=== PATIENT | female | born 1940 | race Caucasian/White ===

== ENCOUNTER → 2016-09-12 | Outpatient (CLI) | payer OTHER | LOC: FIMAGING 14:18 | PROVIDERS: ATTEND Internal Medicine | DX: Z12.31 Encounter for screening mammogram for malignant neoplasm of breast (principal); Z13.820 Encounter for screening for osteoporosis; M85.80 Other specified disorders of bone density and structure, unspecified site; Z80.3 Family history of malignant neoplasm of breast | CPT/HCPCS: G0202 ==

== ENCOUNTER → 2016-09-18 | Outpatient (CLI) | payer OTHER ==
[~2016-09-18] MED LIST: GADOBUTROL 10 ML VIAL IVP ONE
== END ==
LOC: FIMAGING 07:40
PROVIDERS: ATTEND Physical Medicine & Rehabilitation
DX: M50.321 Other cervical disc degeneration at C4-C5 level (principal); M50.322 Other cervical disc degeneration at C5-C6 level; M50.323 Other cervical disc degeneration at C6-C7 level; M50.33 Other cervical disc degeneration, cervicothoracic region; M12.88 Other specific arthropathies, not elsewhere classified, other specified site; M99.71 Connective tissue and disc stenosis of intervertebral foramina of cervical region; M48.02 Spinal stenosis, cervical region
CPT/HCPCS: 72156; A9585

== ENCOUNTER 2016-12-04 10:15 | Emergency (ER) | payer OTHER ==
[2016-12-04 10:39] VITALS: RESP 16
--- NOTE | 2016-12-04 12:39 | EDPHY ---
H & P Time Seen by Provider: 12/04/16 12:24 HPI/ROS: CHIEF COMPLAINT: Finger laceration HISTORY OF PRESENT ILLNESS: This 76-year-old female presenting to the emergency department status post cutting her finger on a mandoline blade few hours ago. Patient states she placed pressure on right away just wanted make sure she did not need sutures. Tetanus vaccine up-to-date March 2016. Denies any other complaints REVIEW OF SYSTEMS: Constitutional: No fever, no chills. Eyes: No discharge. No blurred vision Cardiovascular: No hest pain, no palpitations. Respiratory: no shortness of breath. Gastrointestinal: No abdominal pain, no vomiting. Musculoskeletal: No back pain. Right ring finger laceration Skin: No rashes. Neurological: No headache. Physical Exam: General Appearance: Alert, no distress. Eyes: Pupils equal and round no pallor ENT, Mouth: Mucous membranes moist. Respiratory: There are no retractions. Nonlabored respiratory effort Cardiovascular: Regular rate and rhythm. Neurological: No focal deficits Skin: Warm and dry, no rashes. Musculoskeletal: Neck is supple nontender. Extremities: Superficial Laceration noted to right distal ring finger. full range of motion. Positive CMS intact Psychiatric: Patient is oriented X 3. Acting appropriate Constitutional: Initial Vital Signs Temperature (C) 36.5 C 12/04/16 10:36 Heart Rate 65 12/04/16 10:36 Respiratory Rate 16 12/04/16 10:36 Blood Pressure 139/62 H 12/04/16 10:36 O2 Sat (%) 95 12/04/16 10:36 O2 Delivery Mode Room Air Allergies/Adverse Reactions: No Known Allergies Allergy (Unverified 12/04/16 10:36) Home Medications: Medication Instructions Recorded Aspirin 12/04/16 Atorvastatin Calcium 12/04/16 Hydrochlorothiazide 12/04/16 Tinanidine 12/04/16 Medical Decision Making Procedures: Procedure: Laceration repair with skin glue. The 0.5cm superficial laceration on the right distal ring finger medial aspect of nail, does not involve nail . The wound was cleaned and explored to its base with a gloved finger. There were no deep structures involved. The wound was repaired with tissue adhesive. The procedure was performed by myself. ED Course/Re-evaluation: Discussed the plan of care: Wound irrigation, Dermabond used for closure 1315: discharge home---> stable, discussed discharge instructions and wound care Differential Diagnosis: Other differential diagnosis considered but not limited to tendon laceration, subungual hematoma, and nail avulsion Departure - Departure Disposition: Home, Routine, Self-Care Clinical Impression: Laceration Condition: Good Instructions: Laceration (ED), Skin Adhesive Care (ED) Additional Instructions: 1. Keep initial dressing on for 24 hours 2. After that daily dressing changes. Monitor for any signs of infection, such as: Redness swelling red streaks drainage if this should occur return to the ER Referrals: Catherine Steen MD [Primary Care Provider] - As per Instructions
[2016-12-04] MEDS ORDERED: SKIN ADHESIVE (DERMABOND) 1 EACH TP ONE (12:43)
[2016-12-04 13:33] VITALS: BP 132/74; PULSE 69; TEMP 97.9; O2SAT 96
== END 2016-12-04 13:29 | disposition home or self-care (01) ==
PROC: 0HQFXZZ Repair Right Hand Skin, External Approach (ICD-10-PCS; principal; 2016-12-04)
DX: S61.214A Laceration without foreign body of right ring finger without damage to nail, initial encounter (principal); Z79.82 Long term (current) use of aspirin; W45.8XXA Other foreign body or object entering through skin, initial encounter

== ENCOUNTER → 2017-04-10 | Outpatient (CLI) | payer OTHER | LOC: FIMAGING 13:44 | PROVIDERS: ATTEND Physician Assistant | DX: M48.061 Spinal stenosis, lumbar region without neurogenic claudication (principal); M48.07 Spinal stenosis, lumbosacral region; M54.14 Radiculopathy, thoracic region; M54.16 Radiculopathy, lumbar region; M54.17 Radiculopathy, lumbosacral region | CPT/HCPCS: 72158; A9585 ==

== ENCOUNTER 2017-05-11 12:52 | Observation (INO) | payer OTHER ==
--- NOTE | 2017-05-11 13:06 | EDPHY ---
H & P Time Seen by Provider: 05/11/17 12:52 HPI/ROS: CHIEF COMPLAINT: Bilateral ankle pain and buttock pain post mechanical fall HISTORY OF PRESENT ILLNESS: 76-year-old female, no anticoagulant use, arrives via ambulance, not a trauma activation, after she was in her house, stepped down 2 steps but mis-stepped at the last stair, twisted both ankles and landed on her buttock. She is complaining of bilateral ankle pain right greater than left, no proximal tibia or fibula or knee pain. She is also complaining of buttock and low back pain. History of spinal stenosis with injection yesterday. This purely mechanical non syncopal episode. She denies: Head injury, syncope, midline C-spine pain or injury, peripheral paresthesia, weakness, numbness, chest pain or injury, abdominal pain or injury , straddle injury. PRIMARY CARE PROVIDER: Dr. Catherine Steen REVIEW OF SYSTEMS: A ten point review of systems was performed and is negative with the exception of the items mentioned in the HPI PAST MEDICAL/SURGICAL HISTORY: Spinal stenosis SOCIAL HISTORY: Lives with her partner. denies alcohol use at time of incident PHYSICAL EXAM 1) GENERAL: Well-developed, well-nourished, alert and oriented. Appears anxious. Answering questions appropriately. 2) HEAD: Normocephalic, atraumatic 3) HEENT: Pupils equal, round, reactive to light bilaterally. Negative Horners. Nasopharynx, oropharynx, clear. No deformity or angulation of nose. No septal hematoma. No rhinorrhea. No oral trauma. Ears bilaterally with normal tympanic membranes. No hemotympanum. No fluid or blood in the external auditory canal. No raccoon eyes. No Castaneda sign. Teeth are normally aligned with no gross malocclusion, TMJ bilaterally nontender, facial bones nontender including the zygomatic arch, maxilla mandible. 4) NECK: No cervical collar is on. Posterior cervical spine is nontender, no stepoff, no effusion. Full range of motion which does not elicit any midline cervical spine pain, no posterior midline tenderness, no step-off. 5) LUNGS: Clear to auscultation bilaterally, no wheezes, no rhonchi, no retractions. No obvious signs of trauma. No chest wall pain. No flaring, no grunting. Moving symmetrically. No crepitus. 6) HEART: Regular rate and rhythm, 7) ABDOMEN: No guarding, no rebound, no focal tenderness, no peritoneal signs, no signs of trauma, no ecchymosis 8) MUSCULOSKELETAL: Right lower extremity: Tender to palpation right lateral malleolus with soft tissue swelling noted. Foot including 5th metatarsal nontender. Tibia and fibula including fibular head nontender. Knee nontender. Right hip, acetabulum nontender. Soft compartments Left lower extremity: Tender to palpation lateral malleolus with soft tissue swelling noted. Foot including 5th metatarsal nontender. Tibia and fibula including fibular head nontender. Knee nontender. Left hip, acetabulum nontender. Soft compartments Otherwise,Moving all extremities, no focal areas of tenderness, no obvious trauma. 9) BACK: mild tenderness palpation right buttock. Unable to fully differentiate true midline versus just lateral of midline lower lumbar pain. no visual or palpable abnormality. 10) SKIN: [ No laceration. No abrasion DIFFERENTIAL DIAGNOSIS: In no particular order including but not limited to fracture, sprain, compartment syndrome. - Medical/Surgical History Hx Asthma: No Hx Chronic Respiratory Disease: No Hx Diabetes: Yes Hx Cardiac Disease: No Hx Renal Disease: No Hx Cirrhosis: No Hx Alcoholism: No Hx HIV/AIDS: No Hx Splenectomy or Spleen Trauma: No Other PMH: pmh:dm, spinal stenosis, htn, gerd,. psh:trigge thumb, lami, dental , tonselecomy Constitutional: Initial Vital Signs Temperature (C) 36.9 C 05/11/17 13:14 Heart Rate 83 05/11/17 13:14 Respiratory Rate 17 05/11/17 13:14 Blood Pressure 167/80 H 05/11/17 13:14 O2 Sat (%) 95 05/11/17 13:14 O2 Delivery Mode Room Air Allergies/Adverse Reactions: No Known Allergies Allergy (Unverified 12/04/16 10:36) Home Medications: Medication Instructions Recorded Aspirin [Aspirin 81mg (*)] 81 mg PO DAILY 12/04/16 Atorvastatin Calcium [Lipitor 20 20 mg PO DAILY 12/04/16 mg (*)] Hydrochlorothiazide [HCTZ (*)] 25 mg PO DAILY 12/04/16 Duloxetine HCl [Cymbalta] 40 mg PO DAILY 05/11/17 Fluticasone Nasal [Flonase Nasal 1 sprays NASAL DAILY PRN 05/11/17 Bruce (RX)] Omeprazole [Prilosec 20 mg] 20 mg PO DAILY 05/11/17 Propylene Glycol/Peg 400 [Systane 1 drop EACHEYE DAILY PRN 05/11/17 0.3-0.4% Eye Drops] amLODIPine BESYLATE [Norvasc 5 mg 5 mg PO DAILY 05/11/17 (*)] metFORMIN HCL [Glucophage 500 mg 500 mg PO BIDMEAL 05/11/17 (*)] Medical Decision Making - Diagnostics Imaging Results: Imaging Impressions Ankle X-Ray 05/11/17 13:07 Impression: 1. Nondisplaced oblique fracture distal shaft right fibula with adjacent soft tissue swelling. Ankle X-Ray 05/11/17 13:07 Impression: 1. Lateral ankle sprain on the left. 2. No evidence of fracture left lower leg or ankle. Lumbar Spine X-Ray 05/11/17 13:07 Impression: 1. Degenerative disk disease involving the lumbar spine with mild levoscoliosis as detailed above. 2. No acute osseous abnormality appreciated. Pelvis X-Ray 05/11/17 13:07 Impression: 1. No acute osseous abnormality seen about the pelvis. Tibia/Fibula X-Ray 05/11/17 13:07 Impression: 1. Nondisplaced oblique fracture distal shaft right fibula with adjacent soft tissue swelling. Tibia/Fibula X-Ray 05/11/17 13:07 Impression: 1. Lateral ankle sprain on the left. 2. No evidence of fracture left lower leg or ankle. Images reviewed myself Procedures: Procedure: Splint A [place] boot splint was applied by ER electronics maintenance technician. After application of the splint I returned and re-examined the patient. The splint was adequately immobilizing the joint and distal to the splint the patient's circulation and sensation were intact. Patient shows no signs of compartment syndrome. ED Course/Re-evaluation: 1:08 p.m.:Care of patient under supervision of secondary supervising physician Dr Silva who independently evaluated patient. 2:50 p.m.: Re-evaluation, patient was fitted for a right lower extremity [place] boot I discussed her imaging studies. Positive for distal fibula fracture, closed. Patient has significant pain, is unable to bear weight, is unable to transfer out of the better sit up. Addition she notes that her partner is leaving out of state for a few days. The patient cannot be safely discharged home. Plan will be admission the hospital for PT, OT, rehabilitation , pain control. 2:52 p.m. phone consultation with Dr. Chapis Chapa will consult hospitalist service. Also consulted with hospitalist Dr. De La Rosa who will admit patient - Data Points Medications Given: Hydromorphone HCl (Dilaudid) 0.5 mg IVP Q4HRS PRN PRN Reason: Pain, Severe Unable to Take PO Stop: 05/21/17 15:20 Last Admin: 05/11/17 15:24 Dose: 0.5 mg Discontinued Medications Hydromorphone HCl (Dilaudid) 0.5 mg IVP EDNOW ONE Stop: 05/11/17 13:23 Last Admin: 05/11/17 13:29 Dose: 0.5 mg Ondansetron HCl (Zofran) 4 mg IVP EDNOW ONE Stop: 05/11/17 13:30 Last Admin: 05/11/17 13:33 Dose: 4 mg Departure - Departure Disposition: [facility] Acute Clinical Impression: Fibula fracture Qualifiers: Encounter type: initial encounter Fibula location: distal Fracture type: closed Fracture morphology: other fracture Laterality: right Qualified Code(s): S82.831A - Other fracture of upper and lower end of right fibula, initial encounter for closed fracture Left ankle sprain Qualifiers: Encounter type: initial encounter Involved ligament of ankle: unspecified ligament Qualified Code(s): S93.402A - Sprain of unspecified ligament of left ankle, initial encounter Condition: Fair
[2017-05-11 13:12] LABS: % IMMATURE GRANULYOCYTES 0.5 % (0.0-1.1); ABSOLUTE IMMATURE GRANULOCYTES 0.08 10^3/uL (0.00-0.10); ADD DIFF? NO; ADD MORPH? NO; ADD SCAN? NO; ATYPICAL LYMPHOCYTE FLAG 0 (0-99); FRAGMENT RBC FLAG 0 (0-99); HEMATOCRIT 42.2 % (38.0-47.0); HEMOGLOBIN 14.6 g/dL (12.6-16.3); LEFT SHIFT FLG 0 (0-99); LIPEMIA HEMOLYSIS FLAG 90 (0-99); MEAN CELL HEMOGLOBIN 30.4 pg (27.9-34.1); MEAN CELL HEMOGLOBIN CONCENTR. 34.6 g/dL (32.4-36.7); MEAN CELL VOLUME 87.9 fL (81.5-99.8); MEAN PLATELET VOLUME 10.2 fL (8.7-11.7); PLATELET CLUMPS FLAG 40 (0-99); PLATELET COUNT 357 10^3/uL (150-400)
[2017-05-11] MEDS ORDERED: HYDROmorphONE/DILAUDID 1 MG/ML INJ IVP ONE (13:22)
[2017-05-11] MEDS ORDERED: ONDANSETRON 4 MG/2 ML VIAL ONE (13:24)
[2017-05-11 13:26] LABS: ANION GAP 17 mEq/L (8-16); CARBON DIOXIDE 20 mEq/l (22-31); CHLORIDE 107 mEq/L (97-110); CREATININE 0.9 mg/dL (0.6-1.0); GLOMERULAR FILTRATION RATE > 60; GLUCOSE 165 mg/dL (70-100); POTASSIUM 4.2 mEq/L (3.5-5.2); SODIUM 144 mEq/L (134-144)
[2017-05-11 13:27] LABS: APTT 24.1 SEC (23.0-38.0); INR 0.99 (0.83-1.16)
[2017-05-11] MEDS ORDERED: ONDANSETRON 4 MG/2 ML VIAL IVP ONE (13:29)
[2017-05-11] MEDS ORDERED: HYDROmorphONE/DILAUDID 1 MG/ML INJ IVP PRN (15:21)
[2017-05-11] MEDS ORDERED: HYDROmorphONE/DILAUDID 1 MG/ML INJ ONE (15:23)
[2017-05-11] MEDS ORDERED: ONDANSETRON DISINTEGRATING 4 MG TAB PO PRN (15:40)
[2017-05-11] MEDS ORDERED: ONDANSETRON 4 MG/2 ML VIAL IVP PRN (15:40)
[2017-05-11] MEDS ORDERED: oxyCODONE IR 5 MG TAB PO PRN (15:40)
[2017-05-11] MEDS ORDERED: Propylene Glycol/Peg 400 [Systane 0.3-0.4% Eye Drops] 1 DROP EACHEYE PRN (15:41)
[2017-05-11] MEDS ORDERED: FLUTICASONE NASAL 120 SPRAYS/16 GM MDI NS PRN (15:41)
[2017-05-11] MEDS ORDERED: ACETAMINOPHEN 325 MG TAB PO SCH (15:45)
[2017-05-11] MEDS ORDERED: PANTOPRAZOLE SODIUM 40 MG TAB PO ONE ×2 (16:14→16:16)
--- NOTE | 2017-05-11 16:27 | GHP ---
[f rep st] HISTORY AND PHYSICAL DATE OF ADMISSION: 05/11/2017 HISTORY OF PRESENT ILLNESS: The patient is a 76-year-old female history of hypertension, hyperlipidemia, and early diabetes, who had a mechanical fall today. She has a questionable step between her kitchen and another room only about 6 inches wide. She was carrying a bunch of newspapers. She missed a step. She fell and landed on her bottom. She twisted her ankle, had bilateral ankle pain. She summoned 911. She was diagnosed with a right fibular fracture. She denies antecedent chest pain, palpitations, loss of consciousness , dizziness. She did not hit her head. She does not take anticoagulants. She has not had fever, chills, nausea, vomiting, diarrhea. REVIEW OF SYSTEMS: Complete 10-point review of systems conducted negative except as noted in the HPI. PAST MEDICAL HISTORY: 1. Hypertension. 2. Prediabetes, on metformin. 3. Hyperlipidemia. 4. Spinal stenosis with steroid injection to her right hip yesterday. 5. GERD. ALLERGIES: No known drug allergies. MEDICATIONS: Aspirin, amlodipine, atorvastatin, duloxetine, Flonase, hydrochlorothiazide, metformin, omeprazole, ondansetron, propylene glycol eyedrops. SOCIAL HISTORY: No tobacco. No alcohol. Originally from [place]. Enjoys rock climbing. Lives with a partner. FAMILY HISTORY: Daughter recently diagnosed with oropharyngeal cancer, had surgery. PHYSICAL EXAMINATION: VITAL SIGNS: Blood pressure 167/80, now 151/61, pulse 83 , breathing 17 times a minute, 95% on room air. GENERAL: No acute distress. HEENT: Sclerae anicteric. Oropharynx clear. Mucous membranes moist. NECK: Supple without lymphadenopathy or JVD. LUNGS: Clear to auscultation bilaterally. HEART: S1, S2. ABDOMEN: Soft, nontender, nondistended. LOWER EXTREMITIES: Her right lower extremity is in a boot. Her toes are neurovascularly intact. LABORATORY DATA: Sodium 144, potassium 4.2, chloride 107, bicarb 20, BUN 24, creatinine 0.9, glucose 165. Coags normal. White count 15, hematocrit 42, platelets 357,000. Ankle film shows a right fibular nondisplaced fracture. Left ankle films are negative. I reviewed and interpreted them myself. Pelvis film is negative for fracture. I have discussed the case with JEWEL Lee, of the Emergency Department. ASSESSMENT/PLAN: A 76-year-old female with mechanical fall and fibular fracture. 1. Fibular fracture. Hard boot, almost certainly nonoperative. Orthopedics has been consulted and will see her in consultation. 2. Fall. This is mechanical. No further workup indicated. 3. Leukocytosis. This is mild. We will follow. 4. Spinal stenosis. She had am injection yesterday with improvement in her pain. She describes no history of legs buckling or other such symptoms concerning for neurological weakness. We will follow. 5. Pain. Scheduled Tylenol, scheduled ibuprofen, p.r.n. oxycodone. 6. Prophylaxis. Pharmacologic prophylaxis indicated if in the hospital longer than 24 hours. For now, I have started her on sequential compression devices. DISPOSITION: Observation status, PT, OT. /[id number]/MODL MTDD
[2017-05-11] MEDS: IBUPROFEN 200 MG TAB PO SCH ×3 (17:53→21:27)
[2017-05-11] MEDS: metFORMIN HCL 500 MG TAB PO SCH (17:57)
[2017-05-11] MEDS: ACETAMINOPHEN 500 MG TAB PO SCH (21:28)
[2017-05-11] MEDS ORDERED: CALCIUM CARBONATE 500 MG CHEWABLE TAB PO PRN (23:40)
[2017-05-11] MEDS ORDERED: MELATONIN 3 MG TAB PO PRN (23:41)
[2017-05-12] MEDS: IBUPROFEN 200 MG TAB PO SCH ×4 (02:57→13:57)
[2017-05-12] MEDS: ACETAMINOPHEN 500 MG TAB PO SCH ×2 (05:37→13:57)
[2017-05-12] MEDS: metFORMIN HCL 500 MG TAB PO SCH (08:50)
[2017-05-12] MEDS ORDERED: DULoxetine 20 MG CAP PO SCH (09:00)
[2017-05-12] MEDS ORDERED: ATORVASTATIN CALCIUM 20 MG TAB PO SCH (09:00)
[2017-05-12] MEDS ORDERED: PANTOPRAZOLE SODIUM 40 MG TAB PO SCH (09:00)
[2017-05-12] MEDS ORDERED: ASPIRIN 81 MG CHEWABLE TAB PO SCH (09:00)
[2017-05-12] MEDS ORDERED: amLODIPine BESYLATE 5 MG TAB PO SCH (09:00)
[2017-05-12] MEDS ORDERED: HYDROCHLOROTHIAZIDE 25 MG TAB PO SCH (09:00)
[2017-05-12 11:28] VITALS: BP 124/78; PULSE 57; RESP 12; TEMP 97.7; O2SAT 91
--- NOTE | 2017-05-12 12:48 | GDS ---
[f rep st] DISCHARGE SUMMARY DISCHARGE DIAGNOSES: 1. Nondisplaced oblique fracture, distal shaft, right fibula. 2. History of hypertension. 3. History of spinal stenosis. 4. Mechanical fall. HOSPITAL COURSE AND STAY BY PROBLEM: Mechanical fall, sustaining right distal fibular fracture: The patient was admitted to the hospital due to pain and inability to ambulate. On hospital day #1, the patient's pain is controlled with ibuprofen and Tylenol. She has been given a postop boot. She cur rently awaits ortho evaluation; however, I did discuss the case with Dr. Chapis Chapa who has reviewed h er films and thinks it would be appropriate for her to weight bear as tolerated and use crutches whil e in her boot. The patient does have some concerns about going home since her partner is heading out of town. Case Management has been asked to help provide resources for assistance. PHYSICAL EXAM: VITAL SIGNS: On day of discharge, blood pressure 124/78, pulse 57, respiratory rate 12, O2 sat 91% on room air. Temperature afebrile. RIGHT FOOT: With moderate swelling over the ankl e. 2+ dorsal pedal pulses. Sensation is intact. DIAGNOSTICS DONE THIS HOSPITAL STAY: Lumbar spine x-ray done 05/11/2017 showed no acute osseous abno rmalities. Bilateral tib-fib x-rays were done. Right side revealed a nondisplaced oblique fracture, distal shaft, right fibula, with adjacent soft tissue swelling. Pelvis x-ray showed no acute osseou s abnormalities in the pelvis. DISCHARGE MEDICATIONS: Please refer to discharge medication reconciliation in [facility] for details. DISCHARGE INSTRUCTIONS: The patient will be discharged from the hospital once cleared by Ortho. She should maintain in a postop boot and weight bear as tolerated per Ortho. She should follow up with Dr. Chapa as directed. /[id number]/MODL
--- NOTE | 2017-05-12 13:54 | SOAPPROG ---
SOAP Progress Note Assessment/Plan: Assessment: Plan: Subjective: comfortable with leg elevated and in boot NVI with NT at ant and med ankle ehl and fhl intact WBAT with walker FU in office in approx 2 weeks increase calcium intake Objective: Vital Signs Temp Pulse Resp BP Pulse Ox 36.5 C 57 L 12 124/78 H 91 L 05/12/17 11:26 05/12/17 11:26 05/12/17 11:26 05/12/17 11:26 05/12/17 11:26 Laboratory Results 05/11/17 Unknown 05/11/17 Unknown 05/11/17 05/12/17 05/13/17 05:59 05:59 05:59 Intake Total 500 Output Total 300 Balance 200 PT 13.0 SEC (12.0-15.0) 05/11/17 Unknown INR 0.99 (0.83-1.16) 05/11/17 Unknown ICD10 Worksheet Patient Problems: Problems Problem Status Onset Fibula fracture Acute Left ankle sprain Acute
--- NOTE | 2017-05-12 14:34 | ASMTCMCOM ---
CM Note CM Note Notes: CM spoke w/ Dr. Mercado and ANN Sandhu regarding d/c POC. Pt is a 76 y/o female admitted w/ a right ankle fracture. Pt has been given a boot and crutches. PT is recommending home vs HC. Pts partner will be out of town for a few days. CM provided partner w/ a list of non skilled HC. Partner reports that she will have a family member stay w/ her during the evenings and have supervision during the day. Pt d/c home w/out any needs. CM available for changes. Date Signed: 05/12/2017 02:34 PM Electronically Signed By:SERG Ochoa
--- NOTE | 2017-05-12 14:37 | ASDISCHSUM ---
Discharge Information Plan Status:Home with No Needs Medically Cleared to Leave:05/11/2017 Discharge Date:05/12/2017 02:22 PM CM D/C Disposition: ADT D/C Disposition:Home Health Service Projected Discharge Date:05/12/2017 12:00 AM Transportation at D/C: Discharge Delay Reason: Follow-Up Date:05/12/2017 12:00 AM Discharge Slot: Final Diagnosis: Placement Information Patient Contact Information Contact Name:YE Relationship:Life Partner Address: Work Phone: City: [facility] Phone: State/Zip Code: Email: Financial Information Financial Class:Medicare Advantage Plans Primary Plan Desc:[facility] [employer] [place] Primary Plan Number:[id number] Secondary Plan Desc: Secondary Plan Number: Assessment Information LACE LACE Length of stay for Answers: Less than 1 day current admission Acuity / Level of Care Answers: Was the patient admitted to hospital via the emergency department? Yes: Comorbidities - select Answers: Cerebrovascular disease all that apply Emergency dept visits in Answers: 2 last 6 months Score: 6 Date Signed: 05/11/2017 04:42 PM Electronically Signed By:Aggie Melchor RN [facility] Progress Note CM Note SANDEE Note Notes: CM spoke w/ Dr. Mercado and ANN Sandhu regarding d/c POC. Pt is a 76 y/o female admitted w/ a right ankle fracture. Pt has been given a boot and crutches. PT is recommending home vs HC. Pts partner will be out of town for a few days. CM provided partner w/ a list of non skilled HC. Partner reports that she will have a family member stay w/ her during the evenings and have supervision during the day. Pt d/c home w/out any needs. CM available for changes. Date Signed: 05/12/2017 02:34 PM Electronically Signed By:SERG Ochoa Intervention Information
--- NOTE | 2017-05-12 15:28 | GCON ---
[f rep st] CONSULTATION INPATIENT CONSULTATION DATE OF CONSULTATION: 05/12/2017 CURRENT COMPLAINT: Right ankle pain. HISTORY OF PRESENT ILLNESS: The patient is a 76-year-old female who fell yesterday, had pain at the right ankle, was examined in the emergency room and found to have a right ankle fracture. I was aske d to see the patient for further evaluation. PHYSICAL EXAMINATION: The patient is neurologically intact to the dorsal, lateral and plantar portio ns of the foot with EHL and FHL intact. Peroneal musculature is not checked. She is tender to the l ateral malleolus, but not to the anterior and medial portions of the ankle, suggesting stability to t he anterior ligamenture as well as the deltoid ligament. IMAGING: X-ray exam revealed a nondisplaced fracture of the lateral malleolus with no widening noted to the medial mortise. ASSESSMENT AND PLAN: The patient is status post right fibular fracture. The patient is to weightbea r as tolerated and increase her calcium intake to at least 1500 mg of calcium per day. She is to fol low up in the office in the next week and a half to two weeks with x-rays to follow her progress. Copy requested to: Dr. Manning /[id number]/MODL
== END 2017-05-12 14:22 | disposition home health service (06) ==
LOC: EDUNIT# → F3N 17:29
PROVIDERS: ADMIT Internal Medicine; ATTEND Family Medicine
PROC: 2W3QX1Z Immobilization of Right Lower Leg using Splint (ICD-10-PCS; principal; 2017-05-11)
DX: S82.434A Nondisplaced oblique fracture of shaft of right fibula, initial encounter for closed fracture (principal); S93.402A Sprain of unspecified ligament of left ankle, initial encounter; M48.061 Spinal stenosis, lumbar region without neurogenic claudication; M51.86 Other intervertebral disc disorders, lumbar region; W10.8XXA Fall (on) (from) other stairs and steps, initial encounter; Y92.000 Kitchen of unspecified non-institutional (private) residence as the place of occurrence of the external cause; I10 Essential (primary) hypertension; K21.9 Gastro-esophageal reflux disease without esophagitis; E11.9 Type 2 diabetes mellitus without complications
CPT/HCPCS: 29515; 72100; 72170; 73590; 73610; 96374; 96375; 96376; 97161; 99285; G0378; G8978; G8979; G8980; J1170; J2405; L4386

== ENCOUNTER 2017-08-20 07:43 | Day surgery (SDC) | payer OTHER ==
--- NOTE | 2017-08-17 19:04 | GHP ---
[f rep st] PREOP HISTORY AND PHYSICAL DATE OF ADMISSION: 08/20/2017 DATE OF PLANNED PROCEDURE: 08/20/2017. PREOPERATIVE DIAGNOSIS: Fibular nonunion, right. PLANNED PROCEDURE: Open reduction, internal fixation, right distal fibula. HPI: The patient is a 76-year-old female, who injured her ankle several months ago. Failed to progr ess with healing and repeat x-rays have shown continued nonunion of the malleolus. Decision was made to proceed with an open reduction, internal fixation of the fibula. PRIOR MEDICAL HISTORY: Sleep apnea, osteoporosis, reflux, high cholesterol, depression, arthritis. SURGICAL HISTORY: Laminectomy in her L4 vertebrae, trigger finger release 2016. MEDICATIONS: Advair Diskus, amlodipine 5 mg, atorvastatin 20 mg, bupropion 150 mg extended release, duloxetine 20 mg, metformin 500 mg, omeprazole 40 mg. ALLERGIES: Gadolinium. SOCIAL HISTORY: Former smoker. Occasional alcohol use. She is retired and lives here in town. REVIEW OF SYSTEMS: No shortness of breath or chest pain. PHYSICAL EXAM: VITAL SIGNS: She is 5 feet tall, weighs 125 pounds. Blood pressure is 138/86. Hear t rate 66, respiratory rate 16 on room air. GENERAL: Alert and oriented x3. HEENT: Normocephalic, atraumatic. Extraocular muscles intact. NECK: Supple. There is no lymphadenopathy. No JVD. IRMA ST: Clear to auscultation. CARDIOVASCULAR: Regular rate and rhythm. ABDOMEN: Soft, nontender, no ndistended. No hepatosplenomegaly. EXTREMITIES: Right ankle shows some mild swelling around the di stal fibula. She is tender to palpation there. She has 5 degrees ankle dorsiflexion, 40 of plantar flexion. Calf is soft. Achilles tendon is intact. No midfoot or forefoot tenderness. 1+ dorsalis pedis, posterior tibial pulses. Sensation to light touch intact on the dorsum and plantar aspect of her foot. X-RAYS: 3 views of the ankle compared with the original injury films: There has been no bony healin g of the distal fibular fracture. A little bit of loss of alignment. ASSESSMENT: Nonunion, distal fibula. PLAN: I recommend proceeding with an open reduction, internal fixation of the fibula. This was expl ained in detail to the patient. She will initially be nonweightbearing followed by weightbearing in a boot. Risks and benefits including continued nonunion, infection, blood clots, all discussed with the patient. She wished to proceed. Her preoperative paperwork was completed. We will plan on surg oleg Sunday at the hospital. /[id number]/MODL
[2017-08-20] MEDS ORDERED: ceFAZolin 2 GM/SWFI 2 GM/20 ML SYR IVP ONE (08:14)
[2017-08-20 08:17] VITALS: PULSE 54
[2017-08-20] MEDS ORDERED: LR 1,000 ML IV ONE (08:18)
[2017-08-20] MEDS ORDERED: BUPIVACAINE/EPI 0.5% 30 ML SDV ONE ×2 (08:30→08:32)
[2017-08-20] MEDS ORDERED: BACITRACIN 50,000 UNITS/10 ML SYR IRR ONE (08:31)
[2017-08-20] MEDS ORDERED: POLYMYXIN B SULFATE 500,000 UNIT/10 ML SYR IRR ONE ×2 (08:31→08:32)
--- NOTE | 2017-08-20 09:16 | PDHPUP ---
History & Physical Update H&P update statement: This history and physical update is based on an assessment of the patient which was completed after admission or registration (within 24 hours), but prior to the surgery/procedure. H&P update: H&P reviewed & patient examined, no change in patient's condition since H&P completed
--- NOTE | 2017-08-20 09:36 | PDANEPAE ---
ANE History of Present Illness right fibular frx ANE Past Medical History - Cardiovascular History Hx Hypertension: Yes Hx Arrhythmias: No Hx Chest Pain: No Hx Coronary Artery / Peripheral Vascular Disease: No Hx CHF / Valvular Disease: No Hx Palpitations: No - Pulmonary History Hx COPD: No Hx Asthma/Reactive Airway Disease: No Hx Recent Upper Respiratory Infection: No Hx Oxygen in Use at Home: No Hx Sleep Apnea: Yes Sleep Apnea Screening Result - Last Documented: Positive Pulmonary History Comment: wears CPAP - Neurologic History Hx Cerebrovascular Accident: No Hx Seizures: No Hx Dementia: No - Endocrine History Hx Diabetes: Yes Endocrine History Comment: METFORMIN. DIABETES II - Renal History Hx Renal Disorders: No - Liver History Hx Hepatic Disorders: No - Neurological & Psychiatric Hx Hx Neurological and Psychiatric Disorders: Yes Neurological / Psychiatric History Comment: ANXIETY & DEPRESSION - Cancer History Hx Cancer: No - Congenital Disorder History Hx Congenital Disorders: No - GI History Hx Gastrointestinal Disorders: Yes Gastrointestinal History Comment: ACID REFLUX - Other Health History Other Health History: NEG - Chronic Pain History Chronic Pain: Yes (LOW BACK, R SIDE, SPINAL STENOSIS, R FOOT) - Surgical History Prior Surgeries: LAMINECTOMY. TONSILLECTOMY ANE Review of Systems Review of systems is: negative Review of Systems: - Exercise capacity Exercise capacity: >=4 METS METS (RN): 4 METS ANE Patient History - Allergies Allergies/Adverse Reactions: Iodinated Contrast- Oral and IV Dye Allergy (Severe, Verified 08/13/17 11:55) Anaphylaxis titanium Allergy (Verified 08/13/17 11:53) BURNING & PAIN - Home Medications Home Medications: Aspirin [Aspirin 81mg (*)] 81 mg PO DAILY 12/04/16 [Last Taken 3 Days Ago ~08/17] Atorvastatin Calcium [Lipitor 20 mg (*)] 20 mg PO DAILY 12/04/16 [Last Taken 2 Days Ago ~08/18/17] Hydrochlorothiazide [HCTZ (*)] 25 mg PO DAILY 12/04/16 [Last Taken 2 Days Ago ~ 08/18/17] Duloxetine HCl [Cymbalta] 40 mg PO DAILY 05/11/17 [Last Taken 2 Days Ago ~] Fluticasone Nasal [Flonase Nasal [place]] 1 sprays NASAL DAILY PRN 05/11/17 [Last Taken 2 Days Ago ~08/18/17] Omeprazole [Prilosec 20 mg] 20 mg PO DAILY 05/11/17 [Last Taken 2 Days Ago ~] Propylene Glycol/Peg 400 [SYSTANE 0.3-0.4% EYE DROPS] 1 drop EACHEYE DAILY PRN 05/11/17 [Last Taken Unknown] amLODIPine BESYLATE [Norvasc 5 mg (*)] 5 mg PO DAILY 05/11/17 [Last Taken 2 Days Ago ~08/18/17] metFORMIN HCL [Glucophage 500 mg (*)] 500 mg PO BIDMEAL 05/11/17 [Last Taken 2 Days Ago ~08/18/17] - NPO status NPO Status: no food or drink >8 hours NPO Since - Liquids (Date): 08/20/17 NPO Since - Liquids (Time): 06:10 NPO Since - Solids (Date): 08/19/17 NPO Since - Solids (Time): 20:00 - Anes Hx Anes Hx: no prior problems - Smoking Hx Smoking Status: Never smoked - Alcohol Use Alcohol Use: Occasionally (4/wk) - Family Anes Hx Family Anes Hx: none Family Hx Anesthesia Complications: NEG ANE Labs/Vital Signs - Vital Signs Vital Signs: reviewed preoperatively; see RN documention for details Blood Pressure: 156/68 Heart Rate: 54 Respiratory Rate: 18 O2 Sat (%): 92 Height: 152.4 cm Weight: 56.699 kg ANE Physical Exam - Airway Neck exam: FROM Mallampati Score: Class 2 Mouth exam: normal dental/mouth exam - Pulmonary Pulmonary: no respiratory distress - Cardiovascular Cardiovascular: regular rate and rhythym - ASA Status ASA Status: II ANE Anesthesia Plan Anesthesia Plan: GA w LMA
[2017-08-20] MEDS ORDERED: LIDOCAINE 2% 100 MG/5 ML SYR ONE (09:45)
[2017-08-20] MEDS ORDERED: fentaNYL 100 MCG/2 ML INJ ONE ×2 (09:46→10:10)
[2017-08-20] MEDS ORDERED: PROPOFOL 200 MG/20 ML VIAL ONE (09:46)
[2017-08-20] MEDS ORDERED: KETOROLAC 30 MG/1 ML SDV ONE (10:17)
[2017-08-20] MEDS ORDERED: DEXAMETHASONE 4 MG/ML VIAL ONE (10:17)
[2017-08-20] MEDS ORDERED: ONDANSETRON 4 MG/2 ML VIAL ONE (10:17)
[2017-08-20] MEDS ORDERED: THROMBIN (BOVINE) 5,000 UNIT VIAL TP ONE (10:19)
[2017-08-20] MEDS ORDERED: CALCIUM CHLORIDE 1 GM/10 ML INJ ONE (10:19)
--- NOTE | 2017-08-20 10:47 | POSTOPPROG ---
Post Op Note Date of Operation: 08/20/17 Surgeon: Matthieu Barbosa Digital Operations Analyst: JEWEL Lundberg Anesthesiologist: Renny Anesthesia: GET(General Endotracheal) Pre-op Diagnosis: non union distal fibula Post-op Diagnosis: same Procedure: ORIF distal fibula Inf/Abcess present in the surg proc area at time of surgery?: No EBL: Minimal Complications: none
[2017-08-20] MEDS ORDERED: HYDROCODONE/APAP 5/325 TAB PO PRN (11:00)
[2017-08-20] MEDS ORDERED: OXYCODONE/APAP 5/325 TAB PO PRN (11:00)
[2017-08-20] MEDS ORDERED: NALOXONE HCL 0.4 MG/ML INJ IVP PRN ×3 (11:00→11:02)
[2017-08-20] MEDS ORDERED: ONDANSETRON 4 MG/2 ML VIAL IVP PRN (11:00)
[2017-08-20] MEDS ORDERED: HYDROmorphONE/DILAUDID 1 MG/ML INJ IVP PRN (11:00)
[2017-08-20] MEDS ORDERED: fentaNYL 100 MCG/2 ML INJ IVP PRN (11:00)
--- NOTE | 2017-08-20 11:00 | POSTANESTH ---
Post Anesthetic Evaluation Cardiovascular Status: Normal, Stable Respiratory Status: Normal, Stable Level of Consciousness/Mental Status: Can Participate in Eval Pain Control: Adequate, Prn Tx Ordered Nausea/Vomiting Control: Adequate, Prn Tx Ordered Complications Possibly Related to Anesthesia: None Noted
[2017-08-20] MEDS ORDERED: MEPERIDINE 25 MG/ML SYR IVP PRN (11:02)
--- NOTE | 2017-08-20 11:11 | GOP ---
[f rep st] OPERATIVE REPORT DATE OF OPERATION: 08/20/2017 SURGEON: Matthieu Barbosa MD BOX COVERER HAND: Norman Tom. ANESTHESIA: General. ANESTHESIOLOGIST: Dr. Lawson. PREOPERATIVE DIAGNOSIS: Nonunion right distal fibula fracture. POSTOPERATIVE DIAGNOSIS: Nonunion right distal fibula fracture. PROCEDURE PERFORMED: Open reduction, internal fixation, right distal fibular fracture. FINDINGS: ESTIMATED BLOOD LOSS: Minimal. DESCRIPTION OF PROCEDURE: After appropriate informed consent was obtained, patient taken to the oper ating room, placed supine on the operative table. Time-out was performed. Patient was identified, c orrect site was identified, matched with radiographs available in the room. She received 2 g of Ance f preoperatively. Following induction of general endotracheal tube anesthesia, right lower extremity was prepped and draped in usual sterile fashion. Exsanguinated the limb, inflated the tourniquet to 250 mmHg. Total tourniquet time was 36 minutes. I made a standard posterior lateral incision based directly over the fibula. Soft tissues were carefully elevated off the bone. The fracture was iden tified. There was some soft callus around it but there was still a visible fracture line there. I t ook down the soft callus. I irrigated the wound. We then placed 1 cc of bone putty allograft at the fracture site and with a pointed tenaculum clamp I reduced the fracture. I then placed 1 lag screw from superior to distal and inferior with good compression of the bone. I then bent a 6 hole, 1/3 tu bular stainless steel plate from [employer]. Held it to the bone and then placed 1 proximal and distal screw compressed it over the rest of the holes with good bony purchase. Good reduction of the fractu re. Good position of the hardware. I confirmed its position with AP lateral fluoroscopic images. T he wound was irrigated a final time. Deep layers closed with 2-0 Vicryl. Skin was closed with inter rupted 4-0 Monocryl suture in a subcuticular fashion. I instilled 25 mL of 0.5% Marcaine plain aroun d the incision. Sterile dressing and a posterior splint were applied. Patient was awakened from ane sthesia, taken to the recovery in satisfactory condition. There were no immediate intraoperative com plications. Chaz Tom' assistance was required throughout the entire case. COMPLICATIONS: None. DRAINS: None. HISTORY: Monique is a 76-year-old female, who sustained a right ankle fracture in a fall back in [facility] of [facility]. She was treated non operatively. However, on repeat x-rays found to be a nonunion of the fibula and she has had continued pain. Decision was made to proceed with an open reduction, inte rnal fixation of the fibula. /[id number]/MODL
[2017-08-20 13:46] VITALS: RESP 14
[2017-08-20 13:47] VITALS: BP 139/83; TEMP 98.2; O2SAT 94
== END 2017-08-20 13:55 | disposition home or self-care (01) ==
LOC: FSGY 07:43
PROVIDERS: ATTEND Orthopaedic Surgery
PROC: 0QSJ04Z Reposition Right Fibula with Internal Fixation Device, Open Approach (ICD-10-PCS; principal; 2017-08-20 09:00)
DX: S82.401K Unspecified fracture of shaft of right fibula, subsequent encounter for closed fracture with nonunion (principal); G47.30 Sleep apnea, unspecified; M85.80 Other specified disorders of bone density and structure, unspecified site; K21.9 Gastro-esophageal reflux disease without esophagitis; E78.00 Pure hypercholesterolemia, unspecified; F32.9 Major depressive disorder, single episode, unspecified; I10 Essential (primary) hypertension; E11.9 Type 2 diabetes mellitus without complications; Z79.84 Long term (current) use of oral hypoglycemic drugs
CPT/HCPCS: C1713; J0690; J1100; J1200; J1885; J2001; J2405; J2704; J3010

== ENCOUNTER 2017-10-06 09:20 | Emergency (ER) | payer OTHER ==
[2017-10-06] MEDS ORDERED: IBUPROFEN 600 MG TAB PO ONE (09:52)
[2017-10-06] MEDS ORDERED: DEXAMETHASONE 4 MG TAB PO ONE (09:53)
--- NOTE | 2017-10-06 09:56 | EDPHY ---
H & P Smoking Status: Never smoked Time Seen by Provider: 10/06/17 09:37 HPI/ROS: CHIEF COMPLAINT: Sore throat, cough HISTORY OF PRESENT ILLNESS: 76-year-old female presents to the emergency department by private vehicle with 1 day history of sore throat, swollen glands and cough. The patient states the symptoms started yesterday initially she thought they were related to allergies. She took a Sudafed which helped with some of the nasal congestion. She states that she also had a sore throat and felt like she was having swollen glands. She was around her grandson a week ago who was also sick. She denies pain in her chest or difficulty breathing. She states "I never get sick". She denies abdominal pain or vomiting. She has not taken any medication for her sore throat. She denies dysphagia. REVIEW OF SYSTEMS: Constitutional: No fever, no chills. Eyes: No double or blurry vision. ENT: sore throat. Respiratory: Occasional cough. no shortness of breath. Cardiac: No chest pain. Gastrointestinal: No abdominal pain, vomiting or diarrhea. Genitourinary: No dysuria. Musculoskeletal: No neck or back pain. Skin: No rashes. Neurological: No headache. (Gabriela Chopra) Past Medical/Surgical History: Orthopedic injuries (Gabriela Chopra) Social History: She has a life partner and lives in [place] (Gabriela Chopra) Physical Exam: General Appearance: Alert, no distress. Afebrile. 164/73, 95% on room air. Eyes: Pupils equal and round. Extraocular motions are all intact. ENT: Mouth: Mucous membranes moist. Posterior pharyngeal injection is noted. Swollen tonsils. No exudate. No muffled voice or trismus. No uvular swelling or shift. No evidence of peritonsillar abscess. Anterior cervical lymphadenopathy palpated. Respiratory: No wheezing, rhonchi, or rales, lungs are clear to auscultation. Cardiovascular: Regular rate and rhythm. Gastrointestinal: Abdomen is soft and nontender, no masses, no rebound or guarding, bowel sounds normal. Neurological: Alert and oriented x 3, cranial nerves II through XII grossly intact Skin: Warm and dry, no rashes. Musculoskeletal: Nontender to palpate along the cervical, thoracic or lumbar spine. Neck is supple. Extremities: Full range of motion and no peripheral edema. Psychiatric: Patient is oriented X 3, there is no agitation. (Gabriela Chopra) Constitutional: Initial Vital Signs Temperature (C) 36.8 C 10/06/17 09:25 Heart Rate 79 10/06/17 09:25 Respiratory Rate 18 10/06/17 09:25 Blood Pressure 164/73 H 10/06/17 09:25 O2 Sat (%) 95 10/06/17 09:25 O2 Delivery Mode Room Air Allergies/Adverse Reactions: Iodinated Contrast- Oral and IV Dye Allergy (Severe, Verified 10/06/17 09:28) Anaphylaxis titanium Allergy (Verified 10/06/17 09:28) BURNING & PAIN Home Medications: Medication Instructions Recorded Aspirin [Aspirin 81mg (*)] 81 mg PO DAILY 12/04/16 Atorvastatin Calcium [Lipitor 20 20 mg PO DAILY 12/04/16 mg (*)] Hydrochlorothiazide [HCTZ (*)] 25 mg PO DAILY 12/04/16 Duloxetine HCl [Cymbalta] 40 mg PO DAILY 05/11/17 Fluticasone Nasal [Flonase Nasal 1 sprays NASAL DAILY PRN 05/11/17 [place]] Omeprazole [Prilosec 20 mg] 20 mg PO DAILY 05/11/17 Propylene Glycol/Peg 400 [SYSTANE 1 drop EACHEYE DAILY PRN 05/11/17 0.3-0.4% EYE DROPS] amLODIPine BESYLATE [Norvasc 5 mg 5 mg PO DAILY 05/11/17 (*)] metFORMIN HCL [Glucophage 500 mg 500 mg PO BIDMEAL 05/11/17 (*)] Acetaminophen [Tylenol ES 500 mg 1,000 mg PO Q8 tab 05/12/17 (*)] Dexamethasone [Decadron 4 MG (*)] 8 mg PO DAILY #2 tab 10/06/17 Medical Decision Making ED Course/Re-evaluation: The patient was around her grandson who was ill. Rapid strep screen is pending. She was given 400 mg of ibuprofen and 8 mg of oral Decadron. Review of the patient's laboratory studies in the past she has normal creatinine of 1. Rapid strep screen was negative. Patient was feeling much better after the ibuprofen and Decadron. She was able to eat and drink. I doubt this patient has influenza. I do not think this patient has pneumonia. She began having a sore throat yesterday. Patient will call for her strep culture on Sunday. She was instructed to return if she felt worse in any way, specifically shortness of breath, pain in her chest, fevers, or if she felt worse in any way. (Gabriela Chopra) I did not see this patient while she was in the emergency department. However her care was discussed with the PA while the patient was in the department. I agree with treatment plan and management (Juan A Rob) Differential Diagnosis: Including but not limited to strep pharyngitis, peritonsillar abscess, viral syndrome, pneumonia, bronchitis, sinusitis, influenza (Gabriela Chopra) - Data Points Laboratory Results: 10/06/17 10/06/17 Unknown 09:45 Group A Strep Screen NEGATIVE (NEGATIVE) Group A Strep DNA Pending Medications Given: Discontinued Medications Dexamethasone (Decadron) 8 mg PO EDNOW ONE Stop: 10/06/17 09:54 Last Admin: 10/06/17 10:04 Dose: 8 mg Ibuprofen (Motrin) 400 mg PO EDNOW ONE Stop: 10/06/17 09:53 Last Admin: 10/06/17 10:04 Dose: 400 mg Departure - Departure Disposition: Home, Routine, Self-Care Clinical Impression: Acute pharyngitis Qualifiers: Pharyngitis/tonsillitis etiology: unspecified etiology Qualified Code(s): J02.9 - Acute pharyngitis, unspecified Upper respiratory infection Qualifiers: URI type: unspecified URI Qualified Code(s): J06.9 - Acute upper respiratory infection, unspecified Condition: Good Instructions: Pharyngitis (ED), Upper Respiratory Infection (ED) Additional Instructions: You may continue Decadron again tomorrow. Your given a dose in the emergency department. Ibuprofen 400 mg every 8 hr as needed for pain. Call [phone] for the results of your throat culture in 48 hr. Return to the emergency department if you developed recurring pain, if you have difficulty swallowing, if you develop fever, neck pain, shortness of breath or worsening cough or if you feel worse in any way. Referrals: Catherine Steen MD [Primary Care Provider] - As per Instructions Prescriptions: Dexamethasone [Decadron 4 MG (*)] 8 mg PO DAILY #2 tab
[2017-10-06] MEDS ORDERED: IBUPROFEN 200 MG TAB PO ONE (10:02)
[2017-10-06 11:16] VITALS: BP 151/84
== END 2017-10-06 11:15 | disposition home or self-care (01) ==
DX: J06.9 Acute upper respiratory infection, unspecified (principal); Z79.82 Long term (current) use of aspirin

== ENCOUNTER → 2017-12-28 | Outpatient (CLI) | payer OTHER | LOC: FIMAGING 12:53 | PROVIDERS: ATTEND Internal Medicine | DX: Z12.31 Encounter for screening mammogram for malignant neoplasm of breast (principal); Z80.3 Family history of malignant neoplasm of breast ==

== ENCOUNTER 2018-09-05 08:25 | Observation (INO) | payer OTHER ==
--- NOTE | 2018-09-05 09:03 | EDPHY ---
General Time Seen by Provider: 09/05/18 09:02 Narrative: CLINICAL IMPRESSION: Pneumonia, influenza a, acute hypoxemia ASSESSMENT/PLAN: Patient is a 77-year-old female with a significant medical history of GERD, hypertension, hyperlipidemia, early diabetes and spinal stenosis who presents with complaints of runny nose, congestion, sore throat, cough and myalgias. Patient is afebrile, in no acute distress and nontoxic appearing. Her vital signs were reviewed and no findings to suggest sepsis or serious bacterial illness. She was placed on a patient monitor, an ECG was obtained and revealed nonspecific ST changes, reviewed by myself and Dr. Bro. There was no evidence of ischemia and I do not suspect ACS at this time as symptoms have been ongoing since Sunday and are more consistent with infectious process. Laboratory studies were obtained including influenza/respiratory panel- positive for influenza A. CBC with no evidence of leukocytosis, blood cultures were obtained. Basic metabolic panel revealed hypokalemia with a potassium of 2.8, replacement initiated in the emergency department. CXR focal consolidation in the retrocardiac space consistent with pneumonia. Patient was given Rocephin and azithromycin in the emergency department. Symptoms have been going on for 5 days, did not initiate Tamiflu. Her oxygen saturation did drop to 88% on room air, she was placed on 2 L of oxygen via nasal cannula with improvement to 94%. The patient remained hemodynamically stable while in the emergency department, she will be admitted to the hospitalist service for further observation and management. I spoke with ZAYRA Garcia, she will be admitted to Dr. Arce. History and physical examination is most consistent with pneumonia and influenza a. DIFFERENTIAL DX: Adult fever including but not limited to viral syndromes including influenza, urinary tract infection, pneumonia and sepsis. ED COURSE: 0915: Discussed case with Dr. Bro. 0948: ECG reviewed by myself and Dr. Bro, nonspecific ST changes. 1000: Chest x-ray reviewed, focal consolidation in the retrocardiac space consistent with pneumonia. 1114: Influenza a positive CHIEF COMPLAINT: Runny nose, congestion, sore throat, cough, myalgias HPI: Patient is a 77-year-old female with a history of GERD, hypertension, hyperlipidemia, early diabetes and spinal stenosis who presents to the emergency department with 5 days of runny nose, congestion, cough and myalgias. Patient reports last Sunday she had a sudden onset of a tickle in her throat, this progressively worsened over the last several days to runny nose, congestion and worsening cough. Patient did get her influenza vaccine this year. No other sick contacts. She denies any fever, has had a mild headache on and off. She denies any neck stiffness. She has had a mild sore throat which has gotten better throughout the week. Her cough has been nonproductive until yesterday and this morning. She has not been getting very good sleep as her cough is keeping her up at night. She has progressively feeling worse. She denies any chest pain or shortness of breath. Appetite has been normal, she denies any nausea, vomiting or abdominal pain. She does not believe she has had any fever however has felt chilled. Denies any urinary symptoms or change in bowel habits. She does have a long-standing history of spinal stenosis in her neck, has chronic pain which is unchanged. PMH: Hypertension, prediabetes, hyperlipidemia, spinal stenosis, GERD Family History: Noncontributory Social History: Denies smoking, illicit drug use or alcohol. She is very active, lives at home independently with her domestic partner. REVIEW OF SYSTEMS: All other systems negative Constitutional: Denies fever, has felt chilled. Eyes: No discharge, vision change ENT: Sore throat, runny nose, congestion. No ear pain. Cardiovascular: No chest pain, no palpitations. Respiratory: Cough, no shortness of breath. Gastrointestinal: No abdominal pain, no vomiting, diarrhea. Genitourinary: No hematuria, dysuria, flank pain, pelvic pain Musculoskeletal: Myalgias. No back pain, joint swelling, joint pain. Skin: No rashes, color change. Neurological: Mild headache. No dizziness or weakness. PHYSICAL EXAM: General Appearance: Well-developed, tired appearing however not toxic- appearing. HENT: Normocephalic, atraumatic. Bilateral external ears are normal. Bilateral tympanic membranes are normal with pearly grijalva reflex. Nares are clear, mucosa is pink. Mild amount of rhinorrhea bilaterally. Oropharynx is clear, uvula is midline. There is no tonsillar enlargement or exudate. The dentition is normal. Eyes: PERRLA, no acute vision change, nystagmus, swelling, discharge, pain or photosensitivity. Conjunctiva pink, no pallor or injection. Neck: Supple, nontender, no lymphadenopathy, no midline pain, FROM, no meningismus. Respiratory: There are no retractions, faint expiratory wheeze bilaterally. Cardiac: Regular rate and rhythm, no murmurs or gallops. Gastrointestinal: Abdomen is soft, nontender, bowel sounds normal, no masses/ hernia, no rigidity, guarding or focal peritoneal findings. Neurological: Alert and oriented x 3, CN 2-12 grossly intact, normal gait no ataxia, DTR's intact, normal sensation and strength Skin: Warm, dry, no rashes, no nodules on palpation. Musculoskeletal: Extremities are symmetrical, full range of motion, no tenderness, deformity, swelling, or erythema. Psychiatric: Patient is oriented X 3, there is no agitation. MEDICAL DECISION MAKING: Patient was seen independently. Secondary supervising physician at time of evaluation was Dr. Bro. Diagnosis: Pneumonia, influenza, hypokalemia. New, requires workup Summary: See Assessment and Plan for summary of ED visit Clinical lab tests: ordered / reviewed. Independent visualization of images, tracing, or specimens: Yes. Decision to obtain medical records or history from someone other than the patient: Yes, partner Review / Summarize previous medical records: Yes Discussed patient with another provider: Yes Patient Progress: Stable, admit. - Diagnostics Imaging Results: Imaging Impressions Chest X-Ray 09/05/18 09:12 Impression: 1. There is a focal opacity in the retrocardiac airspace which is suspicious for either atelectasis or pneumonia. Would correlate with clinical symptoms. 2. Senescent changes of lung with bibasilar interstitial fibrosis. - History Smoking Status: Never smoked - Objective Vital Signs: Initial Vital Signs Temperature (C) 37.4 C 09/05/18 08:29 Heart Rate 90 09/05/18 08:29 Respiratory Rate 18 09/05/18 08:29 Blood Pressure 143/66 H 09/05/18 08:29 O2 Sat (%) 95 09/05/18 08:29 O2 Delivery Mode Nasal Cannula O2 (L/minute) 2 Allergies/Adverse Reactions: Iodinated Contrast- Oral and IV Dye Allergy (Severe, Verified 10/06/17 09:28) Anaphylaxis titanium Allergy (Verified 10/06/17 09:28) BURNING & PAIN Home Medications: Medication Instructions Recorded Aspirin [Aspirin 81mg (*)] 81 mg PO DAILY 12/04/16 Atorvastatin Calcium [Lipitor 20 20 mg PO DAILY 12/04/16 mg (*)] Hydrochlorothiazide [HCTZ (*)] 25 mg PO DAILY 12/04/16 Duloxetine HCl [Cymbalta] 40 mg PO DAILY 05/11/17 Fluticasone Nasal [Flonase Nasal 1 sprays NASAL DAILY PRN 05/11/17 [place]] Omeprazole [Prilosec 20 mg] 20 mg PO DAILY 05/11/17 Propylene Glycol/Peg 400 [SYSTANE 1 drop EACHEYE DAILY PRN 05/11/17 0.3-0.4% EYE DROPS] amLODIPine BESYLATE [Norvasc 5 mg 5 mg PO DAILY 05/11/17 (*)] metFORMIN HCL [Glucophage 500 mg 500 mg PO BIDMEAL 05/11/17 (*)] Acetaminophen [Tylenol ES 500 mg 1,000 mg PO Q8 tab 05/12/17 (*)] Dexamethasone [Decadron 4 MG (*)] 8 mg PO DAILY #2 tab 10/06/17 Laboratory Results: Laboratory Results 09/05/18 10:32 09/05/18 10:32 09/05/18 09/05/18 09/05/18 10:50 10:50 10:32 WBC RBC Hgb POC Hgb 14.3 gm/dL gm/dL (12.6-16.3) Hct POC Hct 42 % % (38-47) MCV MCH MCHC RDW Plt Count MPV Neut % (Auto) Lymph % (Auto) Mayes % (Auto) Eos % (Auto) Baso % (Auto) Nucleat RBC Rel Count Absolute Neuts (auto) Absolute Lymphs (auto) Absolute Monos (auto) Absolute Eos (auto) Absolute Basos (auto) Absolute Nucleated RBC Immature Gran % Immature Gran # VBG Lactic Acid 0.8 mmol/L mmol/L (0.7-2.1) POC Sodium 144 mEq/L mEq/L (135-145) Sodium 140 mEq/L mEq/L (135-145) POC Potassium 2.8 mEq/L L mEq/L (3.3-5.0) Potassium 3.3 mEq/L L mEq/L (3.5-5.2) POC Chloride 107 mEq/L mEq/L (97-110) Chloride 109 mEq/L mEq/L (97-110) Carbon Dioxide 24 mEq/l mEq/l (22-31) POC Total CO2 25 mEq/L mEq/L (22-31) Anion Gap 7 mEq/L mEq/L (6-14) POC BUN 11 mg/dL mg/dL (7-23) BUN 13 mg/dL mg/dL (7-23) Creatinine 0.8 mg/dL mg/dL (0.6-1.0) POC Creatinine 0.8 mg/dL mg/dL (0.6-1.0) Estimated GFR > 60 Glucose 106 mg/dL H mg/dL (70-100) POC Glucose 113 mg/dL H mg/dL (70-100) Calcium 8.7 mg/dL mg/dL (8.5-10.4) 09/05/18 10:32 WBC 7.36 10^3/uL 10^3/uL (3.80-9.50) RBC 4.56 10^6/uL 10^6/uL (4.18-5.33) Hgb 13.7 g/dL g/dL (12.6-16.3) POC Hgb Hct 40.0 % % (38.0-47.0) POC Hct MCV 87.7 fL fL (81.5-99.8) MCH 30.0 pg pg (27.9-34.1) MCHC 34.3 g/dL g/dL (32.4-36.7) RDW 14.2 % % (11.5-15.2) Plt Count 253 10^3/uL 10^3/uL (150-400) MPV 9.8 fL fL (8.7-11.7) Neut % (Auto) 64.0 % % (39.3-74.2) Lymph % (Auto) 23.4 % % (15.0-45.0) Mayes % (Auto) 11.3 % % (4.5-13.0) Eos % (Auto) 0.8 % % (0.6-7.6) Baso % (Auto) 0.4 % % (0.3-1.7) Nucleat RBC Rel Count 0.0 % % (0.0-0.2) Absolute Neuts (auto) 4.71 10^3/uL 10^3/uL (1.70-6.50) Absolute Lymphs (auto) 1.72 10^3/uL 10^3/uL (1.00-3.00) Absolute Monos (auto) 0.83 10^3/uL H 10^3/uL (0.30-0.80) Absolute Eos (auto) 0.06 10^3/uL 10^3/uL (0.03-0.40) Absolute Basos (auto) 0.03 10^3/uL 10^3/uL (0.02-0.10) Absolute Nucleated RBC 0.00 10^3/uL 10^3/uL (0-0.01) Immature Gran % 0.1 % % (0.0-1.1) Immature Gran # 0.01 10^3/uL 10^3/uL (0.00-0.10) VBG Lactic Acid POC Sodium Sodium POC Potassium Potassium POC Chloride Chloride Carbon Dioxide POC Total CO2 Anion Gap POC BUN BUN Creatinine POC Creatinine Estimated GFR Glucose POC Glucose Calcium Microbiology Results: MICROBIOLOGY 09/05/18 08:40 Nasal, Sinus - Swab Respiratory Panel (PCR) - Final Influenza Virus Type A H3 Medications Given: Ceftriaxone Sodium/Dextrose (Rocephin 1 Gm (Premix)) 50 mls @ 100 mls/hr IV EDNOW ONE PRN Reason: Protocol Stop: 09/05/18 11:16 Last Admin: 09/05/18 11:02 Dose: 50 mls Discontinued Medications Acetaminophen (Tylenol) 1,000 mg PO EDNOW ONE Stop: 09/05/18 09:15 Last Admin: 09/05/18 09:22 Dose: 1,000 mg Albuterol (Proventil Neb) 3 ml IH EDNOW ONE Stop: 09/05/18 09:14 Last Admin: 09/05/18 09:22 Dose: 3 ml Point of Care Test Results: Chemistry 09/05/18 10:50 POC Sodium 144 mEq/L mEq/L (135-145) POC Potassium 2.8 mEq/L L mEq/L (3.3-5.0) POC Chloride 107 mEq/L mEq/L (97-110) POC Total CO2 25 mEq/L mEq/L (22-31) POC BUN 11 mg/dL mg/dL (7-23) POC Creatinine 0.8 mg/dL mg/dL (0.6-1.0) POC Glucose 113 mg/dL H mg/dL (70-100) ISTAT H&H 09/05/18 10:50 POC Hgb 14.3 gm/dL gm/dL (12.6-16.3) POC Hct 42 % % (38-47) Departure - Departure Disposition: [facility] Inpatient Acute Clinical Impression: Pneumonia Qualifiers: Pneumonia type: due to unspecified organism Laterality: left Lung location: unspecified part of lung Qualified Code(s): J18.9 - Pneumonia, unspecified organism
[2018-09-05] MEDS ORDERED: ALBUTEROL 3 ML DEYVIAL IH ONE (09:13)
[2018-09-05] MEDS ORDERED: ACETAMINOPHEN 500 MG TAB PO ONE (09:14)
--- NOTE | 2018-09-05 09:48 | CPEKG ---
Test Reason : OPEN Blood Pressure : / mmHG Vent. Rate : 077 BPM Atrial Rate : 077 BPM P-R Int : 142 ms QRS Dur : 079 ms QT Int : 371 ms P-R-T Axes : 024 -24 063 degrees QTc Int : 420 ms Sinus rhythm Probable LVH with secondary repol abnrm Confirmed by Carol Johnson ([id number]) on 09/05/2018 9:47:37 AM Referred By: CAROL JOHNSON Confirmed By:Carol Johnson
[2018-09-05] MEDS ORDERED: AZITHROMYCIN IV 500 MG in NS 250 ML IV ONE (10:47)
[2018-09-05 10:48] LABS: PLATELET COUNT 253 10^3/uL (150-400)
[2018-09-05] MEDS ORDERED: POTASSIUM Cl (KCl) 50 ML IV ONE (10:56)
[2018-09-05] MEDS ORDERED: POTASSIUM CL 20 MEQ TAB PO ONE (11:24)
[2018-09-05] MEDS ORDERED: POTASSIUM CL 20 MEQ TAB ONE (11:27)
[2018-09-05] MEDS ORDERED: oxyCODONE IR 5 MG TAB PO PRN (12:00)
[2018-09-05] MEDS ORDERED: ACETAMINOPHEN 325 MG TAB PO PRN (12:00)
[2018-09-05] MEDS ORDERED: ALBUTEROL 60 PUFFS/8 GM MDI IH PRN (12:00)
[2018-09-05] MEDS ORDERED: ONDANSETRON 4 MG/2 ML VIAL IVP PRN (12:00)
[2018-09-05] MEDS ORDERED: ONDANSETRON DISINTEGRATING 4 MG TAB PO PRN (12:00)
[2018-09-05] MEDS ORDERED: Propylene Glycol/Peg 400 [Systane 0.3-0.4% Eye Drops] 1 DROP EACHEYE PRN (12:01)
[2018-09-05] MEDS ORDERED: PROTOCOL POTASSIUM 1 DOSE MISC PRN (12:04)
--- NOTE | 2018-09-05 12:04 | PDGENHP ---
History and Physical - Chief Complaint cough, chills - History of Present Illness 77yo F with history of HTN, HLD, diabetes presents with 4 days of worsening cough and shortness of breath. These have been associated with severe myalgias and chills in addition to low grade fevers. No nausea, vomiting or diarrhea. Her daughter in law, who was staying with the patient, was recently hospitalized and diagnosed with influenza. She does not currently smoke. In the ED, she was mildly hypoxic and tested positive for influenza A. A CXR shows possible retrocardiac opacity and she was given ceftriaxone and azithromycin. She is being admitted for further management. Case discussed with ED provider Latosha Russo. History Information - Allergies/Home Medication List Allergies/Adverse Reactions: Iodinated Contrast- Oral and IV Dye Allergy (Severe, Verified 10/06/17 09:28) Anaphylaxis titanium Allergy (Verified 10/06/17 09:28) BURNING & PAIN Home Medications: Aspirin [Aspirin 81mg (*)] 81 mg PO DAILY 12/04/16 [Last Taken 2 Days Ago ~09/03] Atorvastatin Calcium [Lipitor 20 mg (*)] 20 mg PO DAILY 12/04/16 [Last Taken 2 Days Ago ~09/03/18] Hydrochlorothiazide [HCTZ (*)] 25 mg PO DAILY 12/04/16 [Last Taken 2 Days Ago ~ 09/03/18] Duloxetine HCl [Cymbalta] 20 mg PO DAILY 05/11/17 [Last Taken 2 Days Ago ~] Propylene Glycol/Peg 400 [SYSTANE 0.3-0.4% EYE DROPS] 1 drop EACHEYE DAILY PRN 05/11/17 [Last Taken 2 Days Ago ~09/03/18] amLODIPine BESYLATE [Norvasc 5 mg (*)] 5 mg PO DAILY 05/11/17 [Last Taken 2 Days Ago ~09/03/18] metFORMIN HCL [Glucophage 500 mg (*)] 500 mg PO BIDMEAL 05/11/17 [Last Taken 2 Days Ago ~09/03/18] Cyanocobalamin [Vitamin B12 (*)] 1,000 mcg PO DAILY 09/05/18 [Last Taken 2 Days Ago ~09/03/18] Herbals/Supplements -Info Only 1 ea PO DAILY 09/05/18 [Last Taken Unknown] Omeprazole 40 mg PO DAILY 09/05/18 [Last Taken 2 Days Ago ~09/03/18] I have personally reviewed and updated: family history, medical history, social history, surgical history - Past Medical History Additional medical history: HTN, HLD, diabetes (not on insulin), MARCUS on CPAP, spinal stenosis, GERD - Surgical History Additional surgical history: laminectomy, tonsillectomy - Family History Additional family history: mother - breast cancer, father - CAD in 60s - Social History Smoking Status: Former smoker Alcohol Use: None Drug Use: None Additional social history: Lives with partner, who is at bedside. Independent in ADLs Review of Systems Review of Systems: ROS: 10pt was reviewed & negative except for what was stated in HPI & below Physical Exam Physical Exam: Temp Pulse Resp BP Pulse Ox 37.4 C 69 16 139/71 H 94 09/05/18 08:29 09/05/18 11:03 09/05/18 11:03 09/05/18 11:03 09/05/18 11:03 Constitutional: no apparent distress, appears nourished, not in pain Eyes: PERRL, anicteric sclera, EOMI Ears, Nose, Mouth, Throat: hearing normal, ears appear normal, no oral mucosal ulcers, dry mucous membranes Cardiovascular: regular rate and rhythym, no murmur, rub, or gallop, No edema Respiratory: no respiratory distress, reduced air movement, rhonchi (bases), No expiratory wheeze Gastrointestinal: normoactive bowel sounds, soft, non-tender abdomen, no palpable masses Genitourinary: no bladder fullness, no bladder tenderness Skin: warm, normal color, no rashes or abrasions, no fluctuance, no induration, No mottled Musculoskeletal: full muscle strength, no muscle tenderness, normal joint ROM, no joint effusions Neurologic: AAOx3 Psychiatric: interacting appropriately, not anxious, not encephalopathic, thought process linear Lab Data & Imaging Review 09/05/18 10:32 09/05/18 10:32 WBC 7.36 10^3/uL (3.80-9.50) 09/05/18 10:32 RBC 4.56 10^6/uL (4.18-5.33) 09/05/18 10:32 Hgb 13.7 g/dL (12.6-16.3) 09/05/18 10:32 POC Hgb 14.3 gm/dL (12.6-16.3) 09/05/18 10:50 Hct 40.0 % (38.0-47.0) 09/05/18 10:32 POC Hct 42 % (38-47) 09/05/18 10:50 MCV 87.7 fL (81.5-99.8) 09/05/18 10:32 MCH 30.0 pg (27.9-34.1) 09/05/18 10:32 MCHC 34.3 g/dL (32.4-36.7) 09/05/18 10:32 RDW 14.2 % (11.5-15.2) 09/05/18 10:32 Plt Count 253 10^3/uL (150-400) 09/05/18 10:32 MPV 9.8 fL (8.7-11.7) 09/05/18 10:32 Neut % (Auto) 64.0 % (39.3-74.2) 09/05/18 10:32 Lymph % (Auto) 23.4 % (15.0-45.0) 09/05/18 10:32 Riley % (Auto) 11.3 % (4.5-13.0) 09/05/18 10:32 Eos % (Auto) 0.8 % (0.6-7.6) 09/05/18 10:32 Baso % (Auto) 0.4 % (0.3-1.7) 09/05/18 10:32 Nucleat RBC Rel Count 0.0 % (0.0-0.2) 09/05/18 10:32 Absolute Neuts (auto) 4.71 10^3/uL (1.70-6.50) 09/05/18 10:32 Absolute Lymphs (auto) 1.72 10^3/uL (1.00-3.00) 09/05/18 10:32 Absolute Monos (auto) 0.83 10^3/uL (0.30-0.80) H 09/05/18 10:32 Absolute Eos (auto) 0.06 10^3/uL (0.03-0.40) 09/05/18 10:32 Absolute Basos (auto) 0.03 10^3/uL (0.02-0.10) 09/05/18 10:32 Absolute Nucleated RBC 0.00 10^3/uL (0-0.01) 09/05/18 10:32 Immature Gran % 0.1 % (0.0-1.1) 09/05/18 10:32 Immature Gran # 0.01 10^3/uL (0.00-0.10) 09/05/18 10:32 VBG Lactic Acid 0.8 mmol/L (0.7-2.1) 09/05/18 10:50 POC Sodium 144 mEq/L (135-145) 09/05/18 10:50 Sodium 140 mEq/L (135-145) 09/05/18 10:32 POC Potassium 2.8 mEq/L (3.3-5.0) L 09/05/18 10:50 Potassium 3.3 mEq/L (3.5-5.2) L 09/05/18 10:32 POC Chloride 107 mEq/L (97-110) 09/05/18 10:50 Chloride 109 mEq/L (97-110) 09/05/18 10:32 Carbon Dioxide 24 mEq/l (22-31) 09/05/18 10:32 POC Total CO2 25 mEq/L (22-31) 09/05/18 10:50 Anion Gap 7 mEq/L (6-14) 09/05/18 10:32 POC BUN 11 mg/dL (7-23) 09/05/18 10:50 BUN 13 mg/dL (7-23) 09/05/18 10:32 Creatinine 0.8 mg/dL (0.6-1.0) 09/05/18 10:32 POC Creatinine 0.8 mg/dL (0.6-1.0) 09/05/18 10:50 Estimated GFR > 60 09/05/18 10:32 Glucose 106 mg/dL (70-100) H 09/05/18 10:32 POC Glucose 113 mg/dL (70-100) H 09/05/18 10:50 Calcium 8.7 mg/dL (8.5-10.4) 09/05/18 10:32 Interpretation: CXR: coarsened interstitial markings are seen bilaterally, reticular opacities at the lung bases bilaterally which likely represent fibrotic changes. A more focal opacity is noted in the retrocardiac airspace. The cardiac silhouette is top normal in size and pulmonary vascularity is within normal limits. EKG additional interpertation: ECG: NSR, LVH with repolarization abnormality, no acute ischemic changes or right heart strain. Assessment & Plan Assessment: 77yo F with history of HTN, HLD, diabetes presents with 4 days of worsening cough and shortness of breath found to have influenza A. Plan: #Influenza A infection - She is out of window for treatment with tamiflu - Supportive care w/cough suppressants, nebs prn #Retrocardiac pneumonia: Unclear if primary influenza pna or secondary bacterial process - S/p tx for CAP in ED with ceftriaxone and azithro - Check procalcitonin; if elevated, will continue abx; if neg, will stop - Blood cultures drawn #Hypokalemia: Due to poor PO - Replete and place on protocol #Acute hypoxia: She is not in failure, currently 1-2L - Wean as able #HTN: Continue home meds, holding hctz #HLD: On statin #Diabetes: Continue metformin. BG normal on admission. #MRACUS: CPAP at night VTE ppx: LMWH Code: Full Diet: regular Dispo: Admit under observation
[2018-09-05] MEDS ORDERED: BENZONATATE 100 MG CAP PO PRN (13:53)
[2018-09-05] MEDS ORDERED: guaiFENesin 600 MG TAB.ER PO PRN (13:53)
[2018-09-05] MEDS: metFORMIN HCL 500 MG TAB PO SCH (18:09)
[2018-09-05] MEDS ORDERED: POTASSIUM CL 10 MEQ TAB PO ONE (19:49)
[2018-09-05] MEDS ORDERED: BIOTENE DRY MOUTH ORAL RINSE 237 ML BTL MM PRN (20:18)
[2018-09-06] MEDS ORDERED: MELATONIN 3 MG TAB PO PRN (00:41)
[2018-09-06 07:57] VITALS: BP 154/85
[2018-09-06] MEDS ORDERED: POTASSIUM CL 10 MEQ TAB PO ONE (08:21)
[2018-09-06] MEDS: metFORMIN HCL 500 MG TAB PO SCH (08:40)
--- NOTE | 2018-09-06 08:43 | PDDCSUM ---
Discharge Summary Discharge Summary: Date of Admission: 09/05/2018 Date of Discharge: 09/06/2018 Studies: CXR Discharge Diagnoses: 1. Influenza A infection 2. Acute hypoxia, resolved 3. Hypokalemia, resolved 4. HTN 5. HLD 6. Non-insulin dependent diabetes 7. MARCUS on CPAP Brief Hospital Course: 77yo F with history of HTN, HLD, diabetes presented with 4 days of worsening non -productive cough, shortness of breath, and myalgias found to have influenza A. CXR showed possible retrocardiac opacity. She initially received ceftriaxone and azithromycin for bacterial pneumonia. A procalcitonin was low so antibiotics were stopped. She was out of the window for treatment with tamiflu so this was not administered. She was initially hypoxic but this improved and she was not requiring supplemental oxygen at discharge. She was in stable condition to discharge home. Of note, her partner developed symptoms of influenza on day of discharge. I did write a prescription for tamiflu for her partner. Medications: Please refer to EMR for complete list. Follow Up Plan: 1. PCP visit in 1-2 weeks Physical Exam: Vitals reviewed, afebrile. Alert and oriented, rrr without m/r/g , lungs clear without wheezes, abdomen soft and nt, no rashes, no edema.
[2018-09-06] MEDS ORDERED: DULoxetine 20 MG CAP PO SCH (09:00)
[2018-09-06] MEDS ORDERED: ATORVASTATIN CALCIUM 20 MG TAB PO SCH (09:00)
[2018-09-06] MEDS ORDERED: amLODIPine BESYLATE 5 MG TAB PO SCH (09:00)
[2018-09-06] MEDS ORDERED: ENOXAPARIN 40 MG/0.4 ML SYR SC SCH (09:00)
[2018-09-06] MEDS ORDERED: ASPIRIN 81 MG CHEWABLE TAB PO SCH (09:00)
[2018-09-06] MEDS ORDERED: PANTOPRAZOLE SODIUM 40 MG TAB PO SCH (09:00)
== END 2018-09-06 12:03 | disposition home or self-care (01) ==
LOC: F3E 12:34
PROVIDERS: ADMIT Internal Medicine; ATTEND Internal Medicine
DX: J11.1 Influenza due to unidentified influenza virus with other respiratory manifestations (principal); E87.6 Hypokalemia; I10 Essential (primary) hypertension; E78.5 Hyperlipidemia, unspecified; E11.9 Type 2 diabetes mellitus without complications; G47.33 Obstructive sleep apnea (adult) (pediatric); Z79.84 Long term (current) use of oral hypoglycemic drugs
CPT/HCPCS: 71046; 93005; G0378; J0456; J0696; J3480; J7613; 82435-PO; 82565-PO; 82947-PO; 84132-PO; 84295-PO; 84520-PO; 85014-ER; 96365; J1650

== ENCOUNTER → 2018-10-01 | Outpatient (CLI) | payer OTHER | LOC: FIMAGING 13:20 | PROVIDERS: ATTEND Internal Medicine | DX: N63.20 Unspecified lump in the left breast, unspecified quadrant (principal) ==

== ENCOUNTER → 2018-10-07 | Outpatient (CLI) | payer OTHER | LOC: FIMAGING 12:37 | PROVIDERS: ATTEND Internal Medicine | DX: Z13.820 Encounter for screening for osteoporosis (principal); M85.89 Other specified disorders of bone density and structure, multiple sites; E11.9 Type 2 diabetes mellitus without complications; I10 Essential (primary) hypertension; R89.9 Unspecified abnormal finding in specimens from other organs, systems and tissues ==